=== PATIENT | female | born 1985 | race Caucasian/White ===

== ENCOUNTER 2023-07-25 19:26 | Emergency (ER) | payer SELFPAY ==
[~2023-07-25] VITALS: Ht 149.9 cm; Wt 113.0 kg
[2023-07-25 20:34] VITALS: BP 228/124
[2023-07-25 20:35] VITALS: BP 256/154
[2023-07-25] MEDS ORDERED: OXYMETAZOLINE HCL 15 ML/BTL ONE (20:40)
[2023-07-25 22:10] VITALS: BP 219/119
== END 2023-07-25 22:10 | disposition home or self-care (01) | DRG 151 ==
LOC: ED 19:26
DX: R04.0 Epistaxis (principal)